=== PATIENT | female | born 1950 | race Caucasian/White ===

== ENCOUNTER 2020-09-20 05:48 | Observation (INO) | payer MEDICARE ==
[2020-09-19 15:15] LABS: BASOPHILS % (AUTO) 1 % (0-1); EOSINOPHILS % (AUTO) 1 % (1-7); LYMPHOCYTES % (AUTO) 20 % (22-44); MEAN CORPUSCULAR HEMOGLOBIN 29.8 pg (27.0-34.8); MEAN CORPUSCULAR HGB CONC 32.5 g/dL (32.4-35.8); MEAN PLATELET VOLUME 7.8 fL (7.4-10.4); MONOCYTES % (AUTO) 7 % (2-9); NEUTROPHILS % (AUTO) 71 % (42-75); PLATELET COUNT 228 x10^3/uL (130-400); RED BLOOD COUNT 4.66 x10^6/uL (3.82-5.3); RED CELL DISTRIBUTION WIDTH 14.1 % (9.6-15.2)
[2020-09-19 15:17] LABS: MD NO
[2020-09-19 15:23] LABS: ANION GAP 3 mmol/L (5-15); CALCIUM 8.9 mg/dL (8.5-10.1); CHLORIDE 107 mmol/L (98-107); CREATININE 0.73 mg/dL (0.55-1.02)
[2020-09-19 15:24] LABS: INTERNATIONAL NORMALIZED RATIO 1.02 (0.93-1.1); PROTHROMBIN TIME 10.8 Seconds (9.6-11.5)
[~2020-09-20] VITALS: Ht 162.6 cm; Wt 96.0 kg
[~2020-09-20 05:48] MED LIST: MELO7.5T31 PO
[2020-09-20] MEDS ORDERED: CHLORHEXIDINE 15 ML UDC MM STA (06:03)
[2020-09-20] MEDS ORDERED: ROPIvacaine/PF 0.5%, 30 ML ONE (06:08)
[2020-09-20] MEDS ORDERED: KETOROLAC 60 MG/2 ML ONE (06:08)
[2020-09-20] MEDS ORDERED: ROPIvacaine/PF 0.5%, 20 ML ONE (06:08)
[2020-09-20] MEDS ORDERED: TRANEXAMIC ACID 100 MG/ML, 10ML ONE ×2 (06:08)
[2020-09-20] MEDS ORDERED: EPINEPHRINE 1 MG/ML, 1ML ONE (06:09)
[2020-09-20] MEDS ORDERED: SODIUM CHLORIDE 0.9% 50 ML ONE (06:09)
[2020-09-20] MEDS ORDERED: VANCOMYCIN 1,000 MG ONE (06:09)
[2020-09-20] MEDS ORDERED: LACTATED RINGERS 1,000 ML IV SCH (06:30)
[2020-09-20] MEDS ORDERED: FENTANYL PF 250 MCG/5ML ONE (06:32)
[2020-09-20] MEDS ORDERED: ONDANSETRON 2MG/ML, 2ML ONE (06:58)
[2020-09-20] MEDS ORDERED: PROPOFOL 10 MG/ML, 20ML ONE (06:58)
[2020-09-20] MEDS ORDERED: DEXAMETHASONE 4 MG/ML, 1ML ONE (06:58)
[2020-09-20] MEDS ORDERED: ACETAMINOPHEN 650 MG/20.3 ML UDC PO PRN (07:00)
[2020-09-20] MEDS ORDERED: OXYcodone IR 5MG TABLET PO PRN (07:00)
[2020-09-20] MEDS ORDERED: CEFAZOLIN PMX 2GM/50ML 50 ML IVPB SCH (07:00)
[2020-09-20] MEDS ORDERED: ZOLPIDEM 5MG TABLET PO PRN (07:00)
[2020-09-20] MEDS ORDERED: ONDANSETRON 2MG/ML, 2ML IV PRN (07:00)
[2020-09-20] MEDS ORDERED: ONDANSETRON 4 MG TABLET PO PRN (07:00)
[2020-09-20] MEDS ORDERED: BISACODYL 10 MG SUPP PR PRN (07:00)
[2020-09-20] MEDS ORDERED: SENNA/DOCUSATE TABLET PO PRN (07:00)
[2020-09-20] MEDS ORDERED: MAGNESIUM HYDROXIDE 8%, 30ML UDC PO PRN (07:00)
[2020-09-20] MEDS ORDERED: CLINDAMYCIN 150 MG/ML, 6ML ONE (07:03)
[2020-09-20] MEDS ORDERED: GENTAMICIN 80 MG/2 ML ONE (07:31)
[2020-09-20] MEDS ORDERED: ONDANSETRON 2MG/ML, 2ML IVPush PRN (08:00)
[2020-09-20] MEDS ORDERED: DIAZEPAM 5 MG/ML, 2ML IVPush PRN (08:00)
[2020-09-20] MEDS ORDERED: hydrALAzine 20 MG/ML, 1ML IV PRN (08:00)
[2020-09-20] MEDS ORDERED: HYDROmorphone 1 MG/ML, 1ML INJ IVPush PRN (08:00)
[2020-09-20] MEDS ORDERED: ACETAMINOPHEN 325 MG TABLET PO PRN (08:00)
[2020-09-20] MEDS ORDERED: LABETALOL 5MG/ML, 20ML IV PRN (08:00)
[2020-09-20] MEDS: FENTANYL PF 100 MCG/2ML IV PRN ×3 (08:33→09:11)
[2020-09-20] MEDS ORDERED: FENTANYL PF 100 MCG/2ML ONE (08:39)
[2020-09-20] MEDS ORDERED: OXYcodone 5 MG/5 ML ORAL.SOL UDC ONE ×2 (08:50→09:09)
[2020-09-20] MEDS: OXYcodone 5 MG/5 ML ORAL.SOL UDC PO PRN ×2 (08:51→09:12)
[2020-09-20] MEDS ORDERED: DIPHENHYDRAMINE 25 MG CAPSULE PO PRN (09:00)
[2020-09-20] MEDS ORDERED: HYDROmorphone 1 MG/ML, 1ML INJ ONE (09:09)
[2020-09-20] MEDS: NS + 20MEQ KCL 1,000 ML IV SCH (10:19)
[2020-09-20] MEDS: DOCUSATE 100 MG CAPSULE PO SCH ×2 (10:20→21:38)
[2020-09-20] MEDS ORDERED: VANCOMYCIN PMX 1GM/200ML 200 ML IV ONE (10:30)
[2020-09-20 12:45] VITALS: BP 116/74
[2020-09-20] MEDS ORDERED: PROMETHAZINE 25 MG/ML, 1ML IM PRN (16:30)
[2020-09-20] MEDS ORDERED: DIPHENHYDRAMINE 50 MG/ML, 1ML IVPush PRN (16:30)
[2020-09-20] MEDS: ASPIRIN 81 MG TABLET EC PO SCH (17:44)
[2020-09-20 19:09] VITALS: BP 110/56
[2020-09-20] MEDS: HYDROcodone/APAP 5/325 TABLET PO PRN (21:38)
[2020-09-20 23:31] VITALS: BP 97/59
[2020-09-21] MEDS: NS + 20MEQ KCL 1,000 ML IV SCH (00:15)
[2020-09-21] MEDS: HYDROcodone/APAP 5/325 TABLET PO PRN ×2 (05:52→07:02)
[2020-09-21] MEDS: ASPIRIN 81 MG TABLET EC PO SCH (05:52)
[2020-09-21] MEDS ORDERED: DEXAMETHASONE 4 MG/ML, 1ML IVPush SCH (06:00)
[2020-09-21] MEDS: DOCUSATE 100 MG CAPSULE PO SCH (08:32)
[2020-09-21 10:07] VITALS: BP 108/65
== END 2020-09-21 10:47 | disposition home or self-care (01) ==
LOC: OUT 05:48 → 4NE 09:43 → OUT 23:26 → DCLOUNGE 09-21 10:39
PROVIDERS: ADMIT Orthopaedic Surgery; ATTEND Orthopaedic Surgery
DX: M17.12 Unilateral primary osteoarthritis, left knee (principal); Z20.828 Contact with and (suspected) exposure to other viral communicable diseases; E66.9 Obesity, unspecified; K21.9 Gastro-esophageal reflux disease without esophagitis; Z96.652 Presence of left artificial knee joint; Z87.891 Personal history of nicotine dependence; Z88.0 Allergy status to penicillin; Z79.899 Other long term (current) drug therapy
CPT/HCPCS: 27447; 36415; 80048; 83036; 85014; 85018; 85025; 85610; 85730; 87081; 87147; 87635; 93005; 96361; 96365; 96375; 97110; 97116; 97162; 97165; 97530; C1713; C1776; G0378; J0171; J1100; J1170; J1580; J1885; J2405; J2704; J2795; J3010; J3370; J3480; J7120; S0077